=== PATIENT | female | born 1985 | race Two or more races ===

== ENCOUNTER 2018-11-30 12:34 | Emergency (ER) | payer MEDICAID ==
[2018-11-30] MEDS ORDERED: methylPREDNISolone Sodium Succinate 125 MG/2 ML SDV IM ONE (12:39)
[2018-11-30] MEDS ORDERED: Albuterol/Ipratropium 3.0-0.5 MG/3 ML Neb Soln NEB ONE (12:39)
--- NOTE | 2018-11-30 12:53 | EDM.PDOC ---
ED HPI GENERAL MEDICAL PROBLEM - General Chief Complaint: Asthma Stated Complaint: TROUBLE BREATHING Time Seen by Provider: 11/30/18 12:45 Source of Information: Reports: Patient History Limitations: Reports: No Limitations - History of Present Illness INITIAL COMMENTS - FREE TEXT/NARRATIVE: HISTORY AND PHYSICAL: History of present illness: Patient is a 33-year-old female who comes into the emergency room today with difficulties breathing. Patient does have a history of asthma and states that she has had a weeklong cough that has triggered an exacerbation. She states that she used to be on several inhalers but about a year ago she was told to only have albuterol and does not have her other inhalers. She has not had no an exacerbation in quite a few years. She states that about a week ago she started getting nasal congestion and cough which has triggered her asthma to worsen. All other review of systems were reviewed with patient and negative. She does have a history of asthma but denies any other health history. Review of systems: As per history of present illness and below otherwise all systems reviewed and negative. Past medical history: As per history of present illness and as reviewed below otherwise noncontributory. Surgical history: As per history of present illness and as reviewed below otherwise noncontributory. Social history: No reported history of drug or alcohol abuse. Family history: As per history of present illness and as reviewed below otherwise noncontributory. Physical exam: General: Patient sitting comfortably in no acute distress and nontoxic appearing and speaking in full sentences. HEENT: Atraumatic, normocephalic, pupils reactive, negative for conjunctival pallor or scleral icterus, mucous membranes moist, throat clear, neck supple, nontender, trachea midline. No meningeal signs. Lungs: Left lung henriquez to have diffuse wheezing throughout, right is clear to auscultation, chest nontender. Heart: S1S2, regular, negative for clicks, rubs, or overt murmur. Abdomen: Soft, nondistended, nontender. Negative for masses or hepatosplenomegaly. Negative for costovertebral tenderness. No rigidity, rebound , guarding. Pelvis: Stable nontender. Genitourinary: Deferred. Rectal: Deferred. Extremities: Atraumatic, negative for cords or calf pain. Neurovascular unremarkable. Neuro: Awake, alert, oriented. Cranial nerves II through XII unremarkable. Cerebellum unremarkable. Motor and sensory unremarkable throughout. Exam nonfocal. Notes: On exam, patient does have wheezing throughout her left lung henriquez. She is able to speak in complete sentences on initial presentation. Will do labs and therapeutics. Influenza is negative. After first DuoNeb, patient appeared much more comfortable and wheezing had stopped. Chest x-ray shows no acute cardiopulmonary process. Supportive measures were reviewed and discussed with patient and she is agreeable to plan of care. She has no questions or concerns at this time. Diagnostics: Influenza, chest x-ray Therapeutics: DuoNeb, Solu-Medrol Prescriptions: Medrol dose pack Impression: Asthma exacerbation Plan: 1. Use your inhaler and medications as prescribed. 2. Please follow up with your primary care provider in the next 1-2 days. 3. Return to the ED as needed and as discussed. Definitive disposition and diagnosis as appropriate pending reevaluation and review of above. Chest Pain Score (Numeric/FACES): 7 - Related Data Allergies Allergy/AdvReac Type Severity Reaction Status Date / Time No Known Allergies Allergy Verified 11/30/18 12:39 Home Meds: Home Meds Albuterol [Proventil Neb Soln] 0.63 mg NEB ASDIRECTED 11/30/18 [History] methylPREDNISolone [Medrol] 4 mg PO ASDIRECTED #1 tab.ds.pk 11/30/18 [Rx] ED ROS GENERAL - Review of Systems Review Of Systems: ROS reveals no pertinent complaints other than HPI. ED EXAM, GENERAL - Physical Exam Exam: See Below (see dictation) Course - Vital Signs Last Recorded V/S: Last Vital Signs Temp 98.9 F 11/30/18 12:39 Pulse 99 11/30/18 12:39 Resp 22 H 11/30/18 12:39 BP 127/86 11/30/18 12:39 Pulse Ox 97 11/30/18 12:39 - Orders/Labs/Meds Orders: Active Orders 24 hr Category Date Time Status RT Aerosol Therapy [RC] ASDIRECTED Care 11/30/18 12:39 Active Meds: Medications Discontinued Medications Generic Name Dose Route Start Last Admin Trade Name Freq PRN Reason Stop Dose Admin Albuterol/Ipratropium 3 ml 11/30/18 12:39 11/30/18 12:47 Duoneb 3.0-0.5 Mg/3 Ml NEB 11/30/18 12:40 3 ml ONETIME ONE Administration Methylprednisolone Sodium Succinate 125 mg 11/30/18 12:39 11/30/18 12:58 Solu-Medrol IM 11/30/18 12:40 125 mg ONETIME ONE Administration Departure - Departure Time of Disposition: 14:43 Disposition: Home, Self-Care 01 Condition: Good Clinical Impression: Asthma exacerbation Qualifiers: Asthma severity: unspecified severity Asthma persistence: unspecified Qualified Code(s): J45.901 - Unspecified asthma with (acute) exacerbation - Discharge Information Instructions: Asthma, Adult, [id number] Forms: ED Department Discharge Additional Instructions: The following information is given to patients seen in the emergency department who are being discharged to home. This information is to outline your options for follow-up care. We provide all patients seen in our emergency department with a follow-up referral. The need for follow-up, as well as the timing and circumstances, are variable depending upon the specifics of your emergency department visit. If you don't have a primary care physician on staff, we will provide you with a referral. We always advise you to contact your personal physician following an emergency department visit to inform them of the circumstance of the visit and for follow-up with them and/or the need for any referrals to a consulting specialist. The emergency department will also refer you to a specialist when appropriate. This referral assures that you have the opportunity for follow-up care with a specialist. All of these measure are taken in an effort to provide you with optimal care, which includes your follow-up. Under all circumstances we always encourage you to contact your private physician who remains a resource for coordinating your care. When calling for follow-up care, please make the office aware that this follow-up is from your recent emergency room visit. If for any reason you are refused follow-up, please contact the [facility] Emergency Department at and asked to speak to the emergency department charge nurse. [facility] [address] [place] [id number] [address] 1. Use your inhaler and medications as prescribed. 2. Please follow up with your primary care provider in the next 1-2 days. 3. Return to the ED as needed and as discussed. - My Orders Last 24 Hours: My Active Orders 11/30/18 12:39 RT Aerosol Therapy [RC] ASDIRECTED - Assessment/Plan Last 24 Hours: My Active Orders 11/30/18 12:39 RT Aerosol Therapy [RC] ASDIRECTED
--- NOTE | 2018-11-30 14:38 | CR ---
EXAMINATION: Two-view chest (PA and Lateral views). HISTORY: Shortness of breath. FINDINGS: The trachea is midline. The cardiomediastinal silhouette is within normal limits. No pulmonary infiltrates, effusions or pneumothorax. Mild right basilar atelectasis. Osseous structures appear unremarkable. IMPRESSION: No acute cardiopulmonary process.
== END 2018-11-30 14:55 | disposition home or self-care (01) ==
LOC: MW.ED 12:34
DX: J45.901 Unspecified asthma with (acute) exacerbation (principal)
CPT/HCPCS: 71046; 87804; 94640; 96372; 99285; J2930; 99282; J7620-GY

== ENCOUNTER 2018-12-08 23:26 | Emergency (ER) | payer MEDICAID ==
[2018-12-08] MEDS ORDERED: Albuterol/Ipratropium 3.0-0.5 MG/3 ML Neb Soln ONE (23:29)
[2018-12-08] MEDS ORDERED: Albuterol/Ipratropium 3.0-0.5 MG/3 ML Neb Soln NEB ONE (23:32)
[2018-12-08] MEDS ORDERED: methylPREDNISolone Sodium Succinate 125 MG/2 ML SDV IM ONE (23:32)
--- NOTE | 2018-12-08 23:37 | EDM.PDOC ---
ED HPI GENERAL MEDICAL PROBLEM - General Chief Complaint: Respiratory Problem Stated Complaint: ASTHMA ATTACK Time Seen by Provider: 12/08/18 23:28 - History of Present Illness INITIAL COMMENTS - FREE TEXT/NARRATIVE: HISTORY AND PHYSICAL: History of present illness: The patient is a 33-year-old female with a long-standing history of asthma who was followed by a underwear cutter in [place] and who has relocated here and who was seen here on November 30 re-presents with an asthma flareup. On November 30 she was seen here and had a chest x-ray and influenza testing which was negative and she was placed on a Medrol dose pack which she said helped significantly. She finished the Medrol pack yesterday and over the last 24 hours she has had progressive increasing in her shortness of breath and wheezing. She has given herself 6 albuterol nebulizer treatments at home as well as using her rescue inhaler. She is on maintenance therapy. She has no new chest pain abdominal pain fevers chills or other symptomatology. She says that this happened in the past. The patient does not have a local doctor to check in with for follow-up care. The patient is not a smoker but her is a smoker but he is never home according to her testimony and he does not smoke in their apartment. The patient also says that she has had a dry hacking cough the last 3 weeks preceding her visit here last week Review of systems: As per history of present illness and below otherwise all systems reviewed and negative. Past medical history: As per history of present illness and as reviewed below otherwise noncontributory. Surgical history: As per history of present illness and as reviewed below otherwise noncontributory. Social history: No reported history of drug or alcohol abuse. Family history: As per history of present illness and as reviewed below otherwise noncontributory. Physical exam: General: Well-developed well-nourished mildly overweight female who is nontoxic and vital signs are noted by me. She is somewhat shaky on examination but she is speaking with slight breathlessness. HEENT: Atraumatic, normocephalic, negative for conjunctival pallor or scleral icterus, mucous membranes moist, throat clear, neck supple, nontender, trachea midline. Lungs: Diminished breath sounds in the bases with scattered expiratory wheezing with slight breathlessness on my questioning but no gross work of breathing and she is moving air in the upper henriquez, breath sounds equal bilaterally, chest nontender. Heart: S1S2, regular rhythm and rate and no overt murmurs Abdomen: Soft, nondistended, nontender. NABS Pelvis: Deferred Genitourinary: Deferred. Rectal: Deferred. Extremities: Atraumatic, full range of motion without defects or deficits Neurovascular unremarkable. Neuro: Awake, alert, oriented. Cranial nerves II through XII unremarkable. Cerebellum unremarkable. Motor and sensory unremarkable throughout. Exam nonfocal. Diagnostics: Patient's chest x-ray and influenza testing from November 30 was reviewed by me. No new diagnostics were ordered Therapeutics: Solu-Medrol IM DuoNeb spacer History is much more open after the nebulizer treatment and there is no wheezing appreciated. She says she is feeling better but she is still having coughing. I discussed with her that as she has been an asthmatic or whole life that despite the fact that she looks better both on paper and person I would admit her for an asthma exacerbation if she felt like this was something she could not control at home and she declines at this time. I will give her some duo nebs for home as this seems to be a better nebulizer for her and I will give her spacer as well as expedited follow-up in our clinic. She is comfortable with this care plan Impression: Recurrent asthma exacerbation Definitive disposition and diagnosis as appropriate pending reevaluation and review of above. 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: Musculoskeletal History: Reports: None Neurological History: Reports: None Psychiatric History: Reports: None Endocrine/Metabolic History: Reports: None Hematologic History: Reports: None Immunologic History: Reports: None Oncologic (Cancer) History: Reports: None Dermatologic History: Reports: None - Infectious Disease History Infectious Disease History: Reports: Chicken Pox - Past Surgical History Head Surgeries/Procedures: Reports: None Social & Family History - Family History Family Medical History: Noncontributory - Caffeine Use Caffeine Use: Reports: Coffee ED ROS GENERAL - Review of Systems Review Of Systems: ROS reveals no pertinent complaints other than HPI. ED EXAM, GENERAL - Physical Exam Exam: See Below (See dictation) Course - Vital Signs Last Recorded V/S: Last Vital Signs Temp 36.1 C 12/08/18 23:29 Pulse 104 H 12/08/18 23:29 Resp 24 H 12/08/18 23:29 BP 160/92 H 12/08/18 23:29 Pulse Ox 95 12/08/18 23:29 - Orders/Labs/Meds Orders: Active Orders 24 hr Category Date Time Status RT Aerosol Therapy [RC] ASDIRECTED Care 12/08/18 23:32 Active Meds: Medications Discontinued Medications Generic Name Dose Route Start Last Admin Trade Name Suleimanq PRN Reason Stop Dose Admin Albuterol/Ipratropium 3 ml 12/08/18 23:32 12/08/18 23:35 Duoneb 3.0-0.5 Mg/3 Ml NEB 12/08/18 23:33 3 ml ONETIME ONE Administration Albuterol/Ipratropium Confirm 12/08/18 23:29 12/08/18 23:40 Duoneb 3.0-0.5 Mg/3 Ml Administered 12/08/18 23:30 Not Given Dose 3 ml .ROUTE .STK-MED ONE Methylprednisolone Sodium Succinate 125 mg 12/08/18 23:32 12/08/18 23:41 Solu-Medrol IM 12/08/18 23:33 125 mg ONETIME ONE Administration Departure - Departure Time of Disposition: 00:09 Disposition: Home, Self-Care 01 Condition: Good Clinical Impression: Asthma exacerbation Qualifiers: Asthma severity: mild Asthma persistence: unspecified Qualified Code(s): J45.901 - Unspecified asthma with (acute) exacerbation - Discharge Information Instructions: Asthma, Adult, [id number], Asthma Attack Referrals: PCP,None [Primary Care Provider] - Forms: ED Department Discharge Additional Instructions: The following information is given to patients seen in the emergency department who are being discharged to home. This information is to outline your options for follow-up care. We provide all patients seen in our emergency department with a follow-up referral. The need for follow-up, as well as the timing and circumstances, are variable depending upon the specifics of your emergency department visit. If you don't have a primary care physician on staff, we will provide you with a referral. We always advise you to contact your personal physician following an emergency department visit to inform them of the circumstance of the visit and for follow-up with them and/or the need for any referrals to a consulting specialist. The emergency department will also refer you to a specialist when appropriate. This referral assures that you have the opportunity for followup care with a specialist. All of these measure are taken in an effort to provide you with optimal care, which includes your followup. Under all circumstances we always encourage you to contact your private physician who remains a resource for coordinating your care. When calling for followup care, please make the office aware that this follow-up is from your recent emergency room visit. If for any reason you are refused follow-up, please contact the [facility] emergency department at and ask to speak to the emergency department charge nurse. [facility]- [place] [address] Push hydration and take all prescriptions as directed. We placed on prednisone again and you continue to use your maintenance inhalers at home and try the DuoNeb's in her nebulizer machine as we discussed. Call the clinic at 8 AM on Monday to schedule an expedited follow-up with one of our providers for further asthma care and reevaluation. Return to ER as needed and as discussed. You have also been given Phenergan with codeine from [facility] to use to get some rest - My Orders Last 24 Hours: My Active Orders 12/08/18 23:32 RT Aerosol Therapy [RC] ASDIRECTED - Assessment/Plan Last 24 Hours: My Active Orders 12/08/18 23:32 RT Aerosol Therapy [RC] ASDIRECTED
== END 2018-12-09 00:50 | disposition home or self-care (01) ==
LOC: MW.ED 23:26
DX: J45.901 Unspecified asthma with (acute) exacerbation (principal)
CPT/HCPCS: 94640; 99283; J2930; 99282; J7620-GY

== ENCOUNTER 2019-02-06 05:39 | Emergency (ER) | payer MEDICAID ==
--- NOTE | 2019-02-06 05:49 | EDM.PDOC ---
ED HPI GENERAL MEDICAL PROBLEM - General Chief Complaint: Asthma Stated Complaint: ASTHMA Time Seen by Provider: 02/06/19 05:45 - History of Present Illness INITIAL COMMENTS - FREE TEXT/NARRATIVE: HISTORY AND PHYSICAL: History of present illness: The patient is a 33-year-old female with a long-standing history of asthma who was seen here twice in November, the last time on December 08 by me, and she was following with a black powder glazing operator in [place] before she relocated here and presents with complaints of asthma exacerbation that started over the weekend. The patient says she has been doing very well but did not get follow-up in the clinic after being seen here in November and says that she started developing cold symptoms with a cough and some body aches but no fevers and then she feels like her asthma got triggered and she is having more wheezing and shortness of breath. She says that initially she was coughing up dry and now she is coughing up some phlegm and she is not a smoker. She says that she has been using her DuoNeb's with the last one being about an hour ago and she has not taken steroids since November and she does not feel like the DuoNeb's are working. She denies as she has had a bilateral tubal ligation and she has no abdominal pain vomiting or diarrhea. Review of systems: As per history of present illness and below otherwise all systems reviewed and negative. Past medical history: As per history of present illness and as reviewed below otherwise noncontributory. Surgical history: As per history of present illness and as reviewed below otherwise noncontributory. Social history: No reported history of drug or alcohol abuse. Family history: As per history of present illness and as reviewed below otherwise noncontributory. Physical exam: General: Well-developed well-nourished female who is not breathless but who has a hacking cough in the ED. Vital signs are noted by me. HEENT: Atraumatic, normocephalic, pupils reactive, negative for conjunctival pallor or scleral icterus, mucous membranes moist, throat clear, neck supple, nontender, trachea midline. Lungs: Expiratory wheezing throughout all henriquez with some diminished breath sounds in the bases breath sounds equal bilaterally, chest nontender. Heart: S1S2, regular rate and rhythm no overt murmurs Abdomen: Soft, nondistended, nontender. NABS Pelvis: Deferred Genitourinary: Deferred. Rectal: Deferred. Extremities: Atraumatic, negative for cords or calf pain. Neurovascular unremarkable. Neuro: Awake, alert, oriented. Cranial nerves II through XII unremarkable. Cerebellum unremarkable. Motor and sensory unremarkable throughout. Exam nonfocal. Diagnostics: Chest x-ray Therapeutics: DuoNeb Solu-Medrol The patient has a spacer to use with her inhaler at home and she does not need a refill on the inhaler and she also says she has plenty of duo nebs at home with the nebulizer machine. She says she mostly came here because she knew that she needs steroids.I Encouraged her that she needs to follow-up in the clinic and work on getting on some preventatives. I did offer the patient in observation admission for further management of her asthma and she is declining at this time. Impression: Acute asthma exacerbation Definitive disposition and diagnosis as appropriate pending reevaluation and review of above. 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: Musculoskeletal History: Reports: None Neurological History: Reports: None Psychiatric History: Reports: None Endocrine/Metabolic History: Reports: None Hematologic History: Reports: None Immunologic History: Reports: None Oncologic (Cancer) History: Reports: None Dermatologic History: Reports: None - Infectious Disease History Infectious Disease History: Reports: Chicken Pox - Past Surgical History Head Surgeries/Procedures: Reports: None Social & Family History - Family History Family Medical History: Noncontributory - Caffeine Use Caffeine Use: Reports: Coffee ED ROS GENERAL - Review of Systems Review Of Systems: ROS reveals no pertinent complaints other than HPI. ED EXAM, GENERAL - Physical Exam Exam: See Below (See dictation) Course - Vital Signs Last Recorded V/S: Last Vital Signs Temp 36.1 C 02/06/19 05:45 Pulse 80 02/06/19 05:45 Resp 23 H 02/06/19 05:45 BP 127/91 H 02/06/19 05:45 Pulse Ox 96 02/06/19 05:45 - Orders/Labs/Meds Orders: Active Orders 24 hr Category Date Time Status RT Aerosol Therapy [RC] ASDIRECTED Care 02/06/19 05:58 Active Chest 2V [CR] Stat Exams 02/06/19 05:57 Taken Meds: Medications Discontinued Medications Generic Name Dose Route Start Last Admin Trade Name Evelyn PRN Reason Stop Dose Admin Albuterol/Ipratropium 3 ml 02/06/19 05:57 02/06/19 06:05 Duoneb 3.0-0.5 Mg/3 Ml NEB 02/06/19 05:58 3 ml ONETIME ONE Administration Albuterol/Ipratropium 3 ml 02/06/19 06:42 02/06/19 06:46 Duoneb 3.0-0.5 Mg/3 Ml NEB 02/06/19 06:43 3 ml ONETIME ONE Administration Albuterol/Ipratropium Confirm 02/06/19 06:44 Duoneb 3.0-0.5 Mg/3 Ml Administered 02/06/19 06:45 Dose 3 ml .ROUTE .STK-MED ONE Methylprednisolone Sodium Succinate 125 mg 02/06/19 05:57 02/06/19 06:05 Solu-Medrol IM 02/06/19 05:58 125 mg ONETIME ONE Administration Departure - Departure Time of Disposition: 06:48 Disposition: Home, Self-Care 01 Condition: Good Clinical Impression: Asthma exacerbation Qualifiers: Asthma severity: unspecified severity Asthma persistence: unspecified Qualified Code(s): J45.901 - Unspecified asthma with (acute) exacerbation - Discharge Information Referrals: PCP,None [Primary Care Provider] - Forms: ED Department Discharge Additional Instructions: The following information is given to patients seen in the emergency department who are being discharged to home. This information is to outline your options for follow-up care. We provide all patients seen in our emergency department with a follow-up referral. The need for follow-up, as well as the timing and circumstances, are variable depending upon the specifics of your emergency department visit. If you don't have a primary care physician on staff, we will provide you with a referral. We always advise you to contact your personal physician following an emergency department visit to inform them of the circumstance of the visit and for follow-up with them and/or the need for any referrals to a consulting specialist. The emergency department will also refer you to a specialist when appropriate. This referral assures that you have the opportunity for followup care with a specialist. All of these measure are taken in an effort to provide you with optimal care, which includes your followup. Under all circumstances we always encourage you to contact your private physician who remains a resource for coordinating your care. When calling for followup care, please make the office aware that this follow-up is from your recent emergency room visit. If for any reason you are refused follow-up, please contact the [facility] emergency department at and ask to speak to the emergency department charge nurse. [facility] Primary care- Internal Medicine and Family [address] [address] Push hydration and avoid triggers and try to rest as much as possible. Use your inhaler with the spacer you have as needed as well as the nebulizer machine and duonebs that you have. Take steroids as prescribed. Please contact the clinic to schedule a follow-up appointment for reevaluation and further asthma management as we discussed. Return to ER as needed and as discussed - My Orders Last 24 Hours: My Active Orders 02/06/19 05:57 Chest 2V [CR] Stat 02/06/19 05:58 RT Aerosol Therapy [RC] ASDIRECTED - Assessment/Plan Last 24 Hours: My Active Orders 02/06/19 05:57 Chest 2V [CR] Stat 02/06/19 05:58 RT Aerosol Therapy [RC] ASDIRECTED
[2019-02-06] MEDS: methylPREDNISolone Sodium Succinate 125 MG/2 ML SDV IM ONE (06:05)
[2019-02-06] MEDS: Albuterol/Ipratropium 3.0-0.5 MG/3 ML Neb Soln NEB ONE ×2 (06:05→06:46)
[2019-02-06] MEDS ORDERED: Albuterol/Ipratropium 3.0-0.5 MG/3 ML Neb Soln ONE (06:44)
--- NOTE | 2019-02-06 07:03 | CR ---
Indication: Shortness of breath Technique: Chest 2 views Comparison: None Findings: Cardiovascular and mediastinum: Heart size and vasculature are normal in caliber and appearance. Lungs and pleural spaces: Lungs are clear. No sign of infiltrate or mass. No sign of pleural effusion. No pneumothorax. Bones and soft tissues: No significant findings. Impression: No acute or significant findings. Dictated by Kaz Irwin MD @ Feb 06 2019 7:00AM Signed by Dr. Kaz Irwin @ Feb 06 2019 7:00AM
== END 2019-02-06 07:36 | disposition home or self-care (01) ==
LOC: MW.ED 05:39
DX: J45.901 Unspecified asthma with (acute) exacerbation (principal)
CPT/HCPCS: 71046; 96372; 99285; J2930; 99283; J7620-GY

== ENCOUNTER 2021-04-26 22:15 | Emergency (ER) | payer BC, MEDICAID ==
[2021-04-26] MEDS ORDERED: Ibuprofen 600 MG Tab PO ONE (23:53)
[2021-04-26] MEDS ORDERED: Acetaminophen/oxyCODONE 325-5 MG Tab PO ONE (23:54)
--- NOTE | 2021-04-26 23:56 | EDM.PDOC ---
ED HPI GENERAL MEDICAL PROBLEM - General Chief Complaint: Lower Extremity Injury/Pain Stated Complaint: BOLIAT SMASHED ON LT FOOT Time Seen by Provider: 04/26/21 23:48 Source of Information: Reports: Patient History Limitations: Reports: No Limitations - History of Present Illness INITIAL COMMENTS - FREE TEXT/NARRATIVE: 35-year-old female no relevant medical history presents for injury to left foot. Patient was camping and notes that she dropped a large rock on her foot. She has since noted pain and swelling on the medial dorsal aspect of her foot and in her ankle. She notes pain is worse when walking on the foot or bending the ankle. No other injuries reported. Left Foot Pain Score (Numeric/FACES): 8 - Related Data Allergies Allergy/AdvReac Type Severity Reaction Status Date / Time No Known Allergies Allergy Verified 04/26/21 23:46 Home Meds: Home Meds Albuterol [Proventil Neb Soln] 0.63 mg NEB ASDIRECTED 11/30/18 [History] Acetaminophen/oxyCODONE [Percocet 325-5 MG] 1 each PO Q4H PRN #9 tab 04/27/21 [Rx] Ibuprofen [Motrin] 600 mg PO Q6H PRN #20 tablet 04/27/21 [Rx] Past Medical History HEENT History: Reports: None Cardiovascular History: Reports: None Respiratory History: Reports: Asthma Gastrointestinal History: Reports: None Genitourinary History: Reports: None 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: Musculoskeletal History: Reports: None Neurological History: Reports: None Psychiatric History: Reports: None Endocrine/Metabolic History: Reports: None Hematologic History: Reports: None Immunologic History: Reports: None Oncologic (Cancer) History: Reports: None Dermatologic History: Reports: None - Infectious Disease History Infectious Disease History: Reports: Chicken Pox - Past Surgical History Head Surgeries/Procedures: Reports: None Social & Family History - Family History Family Medical History: No Pertinent Family History - Caffeine Use Caffeine Use: Reports: Coffee Review of Systems - Review of Systems Review Of Systems: Comprehensive ROS is negative, except as noted in HPI. ED EXAM, GENERAL - Physical Exam Exam: See Below Exam Limited By: No Limitations General Appearance: Alert, WD/WN, No Apparent Distress Ears: Hearing Grossly Normal Throat/Mouth: Normal Voice, No Airway Compromise Head: Atraumatic, Normocephalic Respiratory/Chest: No Respiratory Distress, No Accessory Muscle Use Cardiovascular: Normal Peripheral Pulses Extremities: Other (swelling/ecchymosis to medial dorsum of foot with bruising, palpable pulse, TTP of anterior ankle without palpable deformity) Neurological: Alert, Normal Cognition Psychiatric: Normal Affect, Normal Mood Skin Exam: Warm, Dry, Intact, Normal Color Course - Vital Signs Last Recorded V/S: Last Vital Signs Temp 97.8 F 04/27/21 00:01 Pulse 78 04/26/21 23:46 Resp 17 04/26/21 23:46 BP 137/76 04/26/21 23:46 Pulse Ox 98 04/26/21 23:46 - Orders/Labs/Meds Meds: Medications Discontinued Medications Generic Name Dose Route Start Last Admin Trade Name Freq PRN Reason Stop Dose Admin Ibuprofen 600 mg 04/26/21 23:53 04/27/21 00:01 Ibuprofen 600 Mg Tab PO 04/26/21 23:54 600 mg ONETIME ONE Administration Oxycodone/Acetaminophen 1 tab 04/26/21 23:54 04/27/21 00:01 Acetaminophen/Oxycodone 325-5 Mg Tab PO 04/26/21 23:55 1 tab ONETIME ONE Administration - Re-Assessments/Exams Free Text/Narrative Re-Assessment/Exam: 04/26/21 23:56 We will give analgesia for pain. Will get x-ray imaging of the foot and ankle. Will follow up results and disposition. 04/27/21 00:36 No osseous abnormality on x-ray imaging. Will discharge patient with short course of analgesia. Departure - Departure Time of Disposition: 00:36 Disposition: Home, Self-Care 01 Clinical Impression: Contusion Qualifiers: Encounter type: initial encounter Contusion area: foot Laterality: left Qualified Code(s): S90.32XA - Contusion of left foot, initial encounter - Discharge Information Prescriptions: Ibuprofen [Motrin] 600 mg PO Q6H PRN #20 tablet PRN Reason: Pain Acetaminophen/oxyCODONE [Percocet 325-5 MG] 1 each PO Q4H PRN #9 tab PRN Reason: Pain Instructions: Contusion, [id number] Referrals: PCP,None [Primary Care Provider] - Forms: ED Department Discharge Additional Instructions: Your x-ray imaging is unremarkable. There is no evidence of fracture or dislocation. You do have a big contusion or bruise with soft tissue swelling consistent with your injury. I have prescribed you a short course of pain medication that you can spanish moss picker at the pharmacy. Continue to ice the foot. Elevate it when you are not using it. The following information is given to patients seen in the emergency department who are being discharged to home. This information is to outline your options for follow-up care. We provide all patients seen in our emergency department with a follow-up referral. The need for follow-up, as well as the timing and circumstances, are variable depending upon the specifics of your emergency department visit. If you don't have a primary care physician on staff, we will provide you with a referral. We always advise you to contact your personal physician following an emergency department visit to inform them of the circumstance of the visit and for follow-up with them and/or the need for any referrals to a consulting specialist. The emergency department will also refer you to a specialist when appropriate. This referral assures that you have the opportunity for follow-up care with a specialist. All of these measure are taken in an effort to provide you with optimal care, which includes your follow-up. Under all circumstances we always encourage you to contact your private physician who remains a resource for coordinating your care. When calling for follow-up care, please make the office aware that this follow-up is from your recent emergency room visit. If for any reason you are refused follow-up, please contact the [facility] Emergency Department at and asked to speak to the emergency department charge nurse. Please follow up with your primary care physician. If you do not have a primary care physician, see below: [facility] [address] [place] [id number] [facility] [address] [place] [address] [facility] [address] [place] [id number] Sepsis Event Note (ED) - Evaluation Sepsis Screening Result: No Definite Risk - Focused Exam Vital Signs: Vital Signs Temp Temp Pulse Resp BP Pulse Ox 04/27/21 00:01 97.8 F 04/26/21 23:46 97.5 F 78 17 137/76 98
--- NOTE | 2021-04-27 00:33 | CR ---
For Patients: As a result of the Century Cures Act, medical imaging exams and procedure reports are released immediately into your electronic medical record. You may view this report before your referring provider. If you have questions, please contact your health care provider. INDICATION: Hit by rock, ankle pain TECHNIQUE: Ankle radiograph 2 views left COMPARISON: None FINDINGS: Bone: No acute fractures or aggressive bone lesions are identified. Joint: The ankle mortise joint and the visualized hindfoot joints are unremarkable in appearance. No significant ankle effusion is seen. Soft tissue: The Kager fat pad and the Achilles` tendon is normal in appearance. No radiopaque foreign bodies are seen. IMPRESSION: 1. No acute osseous injuries or abnormalities are noted. Dictated by: Guillaume Yee MD @ 04/27/2021 00:30:57 (Electronically Signed)
--- NOTE | 2021-04-27 00:33 | CR ---
For Patients: As a result of the Century Cures Act, medical imaging exams and procedure reports are released immediately into your electronic medical record. You may view this report before your referring provider. If you have questions, please contact your health care provider. INDICATION: Hit by rock, foot pain TECHNIQUE: Foot radiograph 2 views left COMPARISON: None FINDINGS: Bone: No acute fractures or aggressive bone lesions are identified. Joint: The visualized hindfoot, midfoot, and forefoot joints are unremarkable in appearance. No significant ankle effusion is seen. Soft tissue: Unremarkable. No radiopaque foreign bodies are seen. IMPRESSION: 1. No acute osseous injuries or abnormalities are noted. Dictated by: Guillaume Yee MD @ 04/27/2021 00:31:31 (Electronically Signed)
== END 2021-04-27 01:13 | disposition home or self-care (01) ==
LOC: MW.ED 22:15
DX: S90.32XA Contusion of left foot, initial encounter (principal); J45.909 Unspecified asthma, uncomplicated; Z79.899 Other long term (current) drug therapy; W20.8XXA Other cause of strike by thrown, projected or falling object, initial encounter
CPT/HCPCS: 73600; 73620; 99283; A9270

== ENCOUNTER 2022-02-16 08:12 | Emergency (ER) | payer BC, MEDICAID ==
[2022-02-16] MEDS ORDERED: predniSONE 20 MG Tab PO ONE (08:34)
[2022-02-16] MEDS ORDERED: Albuterol/Ipratropium 3.0-0.5 MG/3 ML Neb Soln NEB ONE ×2 (08:34→08:35)
[2022-02-16] MEDS ORDERED: Azithromycin 250 MG Tab PO ONE (10:06)
== END 2022-02-16 10:40 | disposition home or self-care (01) ==
LOC: MW.ED 08:12
DX: J45.51 Severe persistent asthma with (acute) exacerbation (principal); I10 Essential (primary) hypertension; E11.9 Type 2 diabetes mellitus without complications; Z79.899 Other long term (current) drug therapy
CPT/HCPCS: 71046; 99285; A9270; J7620-GY

== ENCOUNTER 2023-06-04 19:29 | Emergency (ER) | payer BC ==
[2023-06-04] MEDS ORDERED: HYDROmorphone 1 MG/ML Syringe IM ONE (20:12)
[2023-06-04] MEDS ORDERED: Ondansetron 4 MG Tab.DIS PO ONE (20:13)
[2023-06-04] MEDS ORDERED: Ibuprofen 600 MG Tab PO ONE (20:13)
== END 2023-06-04 22:03 | disposition home or self-care (01) ==
LOC: MW.ED 19:29
DX: S49.91XA Unspecified injury of right shoulder and upper arm, initial encounter (principal); S59.901A Unspecified injury of right elbow, initial encounter; J45.909 Unspecified asthma, uncomplicated; V86.99XA Unspecified occupant of other special all-terrain or other off-road motor vehicle injured in nontraffic accident, initial encounter
CPT/HCPCS: 73030; 73080; 96372; 99284; A9270; J1170; 99283

== ENCOUNTER 2024-04-04 12:05 | Emergency (ER) | payer SELFPAY ==
[2024-04-04] MEDS: Albuterol/Ipratropium 3.0-0.5 MG/3 ML Neb Soln NEB ONE (13:23)
[2024-04-04] MEDS ORDERED: Albuterol 0.083% 2.5 MG/3 ML Neb Soln NEB SCH (13:45)
[2024-04-04] MEDS: predniSONE 10 MG Tab PO ONE (13:49)
[2024-04-04] MEDS: Albuterol 0.083% 2.5 MG/3 ML Neb Soln NEB STA (13:49)
[2024-04-04] MEDS: predniSONE 20 MG Tab PO ONE (13:50)
== END 2024-04-04 14:58 | disposition home or self-care (01) ==
LOC: MW.ED 12:05
DX: J45.901 Unspecified asthma with (acute) exacerbation (principal)
CPT/HCPCS: 93005; 94640; 99284; A9270; J7620-GY

== ENCOUNTER 2024-11-11 13:44 | Observation (INO) | payer SELFPAY ==
[2024-11-11] MEDS: Albuterol/Ipratropium 3.0-0.5 MG/3 ML Neb Soln NEB ONE ×2 (14:00→14:20)
[2024-11-11] MEDS: Magnesium Sulf/Wat 2 GM/50 mL 2 GM in Premix Bag 1 BAG IV ONE (14:20)
[2024-11-11] MEDS: Sodium Chloride 0.9% 1,000 ML IV ONE (14:20)
[2024-11-11] MEDS: methylPREDNISolone Sodium Succinate 125 MG/2 ML SDV IVPUSH ONE (14:21)
[2024-11-11 14:27] LABS: BASOPHILS ABSOLUTE AUTO 0.07 K/uL (0.00-0.20); BASOPHILS PERCENT AUTO 0.9 % (0.0-1.0); EOSINOPHILS ABSOLUTE AUTO 0.63 K/uL (0.00-0.45); EOSINOPHILS PERCENT AUTO 7.7 % (0.0-6.0); HEMATOCRIT 44.5 % (37.0-47.0); IMMATURE GRAN ABSOLUTE AUTO 0.02 K/uL (0.00-0.05); IMMATURE GRAN PERCENT AUTO 0.2 % (0.0-0.4); LYMPHOCYTES ABSOLUTE AUTO 2.48 K/uL (1.00-4.80); LYMPHOCYTES PERCENT AUTO 30.2 % (24.0-44.0); MEAN CORPUSCULAR HEMOGLOBIN 28.7 pg (28.0-32.0); MEAN CORPUSCULAR HGB CONC 33.7 g/dL (32.0-36.0); MEAN CORPUSCULAR VOLUME 85.1 fL (83.0-99.0); MEAN PLATELET VOLUME 10.2 fL (9.4-12.3); MONOCYTES ABSOLUTE AUTO 0.49 K/uL (0.00-0.80); NEUTROPHILS ABSOLUTE AUTO 4.52 K/uL (1.80-7.70); PLATELET COUNT,PLT 334 K/uL (150-400); RED BLOOD CELL COUNT 5.23 M/uL (4.10-5.30); WHITE BLOOD CELL COUNT,WBC 8.21 K/uL (3.9-11.3)
[2024-11-11 14:43] LABS: A/G RATIO 1.1 (0.9-1.6); ALBUMIN 4.3 g/dL (3.4-5.0); BILIRUBIN TOTAL 0.5 mg/dL (0.2-1.0); CALCIUM 9.2 mg/dL (8.5-10.1); CARBON DIOXIDE,CO2 24.4 mmol/L (21.0-32.0); CREATININE 0.7 mg/dL (0.6-1.0); EST CRCL DRUG DOSING (CG) 97.09 mL/min; MAGNESIUM 2.1 mg/dL (1.8-2.4); POTASSIUM,K 4.2 mmol/L (3.5-5.1); PROTEIN TOTAL,TP 8.1 g/dL (6.4-8.2)
[2024-11-11 16:08] LABS: PH,VENOUS 7.42 (7.31-7.41)
[2024-11-11] MEDS: methylPREDNISolone Sodium Succinate 125 MG/2 ML SDV ONE (17:01)
[2024-11-11] MEDS: Albuterol 0.083% 2.5 MG/3 ML Neb Soln NEB ONE (17:22)
[2024-11-11 18:19] LABS: CORONAVIRUS COVID-19 NAA NEGATIVE (NEGATIVE); INFLUENZA A NAA NEGATIVE (NEGATIVE); INFLUENZA B NAA NEGATIVE (NEGATIVE); RESPIRATORY SYNCYTIAL VIR NAA NEGATIVE (NEGATIVE)
[2024-11-11] MEDS ORDERED: Albuterol/Ipratropium 3.0-0.5 MG/3 ML Neb Soln NEB PRN (19:05)
[2024-11-11] MEDS ORDERED: Ondansetron 4 MG Tab.DIS PO PRN (19:05)
[2024-11-11] MEDS ORDERED: Albuterol 0.083% 2.5 MG/3 ML Neb Soln NEB PRN (20:56)
[2024-11-11] MEDS ORDERED: Pantoprazole 40 MG in Sodium Chloride 0.9% 10 ML IVPUSH SCH (21:00)
[2024-11-11] MEDS: Albuterol/Ipratropium 3.0-0.5 MG/3 ML Neb Soln NEB SCH (23:05)
[2024-11-12 06:45] LABS: BASOPHILS ABSOLUTE AUTO 0.02 K/uL (0.00-0.20); BASOPHILS PERCENT AUTO 0.1 % (0.0-1.0); HEMATOCRIT 43.2 % (37.0-47.0); HEMOGLOBIN 14.1 g/dL (12.0-16.0); IMMATURE GRAN ABSOLUTE AUTO 0.07 K/uL (0.00-0.05); IMMATURE GRAN PERCENT AUTO 0.4 % (0.0-0.4); LYMPHOCYTES ABSOLUTE AUTO 1.05 K/uL (1.00-4.80); MEAN CORPUSCULAR HEMOGLOBIN 28.1 pg (28.0-32.0); MEAN CORPUSCULAR HGB CONC 32.6 g/dL (32.0-36.0); MEAN CORPUSCULAR VOLUME 86.1 fL (83.0-99.0); MEAN PLATELET VOLUME 9.7 fL (9.4-12.3); MONOCYTES ABSOLUTE AUTO 0.46 K/uL (0.00-0.80); MONOCYTES PERCENT AUTO 2.6 % (0.0-8.0); NEUTROPHILS ABSOLUTE AUTO 15.92 K/uL (1.80-7.70); NEUTROPHILS PERCENT AUTO 90.9 % (41.0-71.0); PLATELET COUNT,PLT 296 K/uL (150-400); RED BLOOD CELL COUNT 5.02 M/uL (4.10-5.30); WHITE BLOOD CELL COUNT,WBC 17.52 K/uL (3.9-11.3)
[2024-11-12 07:06] LABS: ALBUMIN 3.8 g/dL (3.4-5.0); BILIRUBIN TOTAL 0.5 mg/dL (0.2-1.0); CARBON DIOXIDE,CO2 17.3 mmol/L (21.0-32.0); CREATININE 0.8 mg/dL (0.6-1.0); EST CRCL DRUG DOSING (CG) 84.95 mL/min; MAGNESIUM 2.2 mg/dL (1.8-2.4); POTASSIUM,K 4.5 mmol/L (3.5-5.1); PROTEIN TOTAL,TP 7.5 g/dL (6.4-8.2)
[2024-11-12] MEDS: Pantoprazole 40 MG Tab.CR PO SCH (07:36)
[2024-11-12] MEDS: methylPREDNISolone Sodium Succinate 40 MG/1 ML SDV IVPUSH SCH (08:26)
[2024-11-12] MEDS ORDERED: Non-Formulary Medication 1 Each (Budesonide/Formoterol Fumarate [Symbicort 160-4.5 Mcg Inh INH SCH (09:00)
[2024-11-12] MEDS: Formoterol/Mometasone 200-5 MCG 8.8 GM Inhaler INH SCH (10:08)
== END 2024-11-12 13:20 | disposition home or self-care (01) ==
LOC: MW.ED 13:44 → MW.MS 17:33
PROVIDERS: ADMIT Family Medicine; ATTEND Family Medicine
DX: J45.901 Unspecified asthma with (acute) exacerbation (principal); R06.02 Shortness of breath; I10 Essential (primary) hypertension; Z79.899 Other long term (current) drug therapy; Z20.822 Contact with and (suspected) exposure to COVID-19; Z87.891 Personal history of nicotine dependence
CPT/HCPCS: 0241U; 36415; 71045; 71045-26; 80053; 82803; 83735; 85025; 87428-QW; A9270-GY; J2919; J3475; J7030; J7620-GY